=== PATIENT | female | born 1995 | race African-American/Black ===

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

== ENCOUNTER 2017-04-22 10:10 | Emergency (ER) | payer OTHER ==
[~2017-04-22] VITALS: Ht 172.7 cm; Wt 69.9 kg
[~2017-04-22 10:10] MED LIST: ALBUTEROL SULF8.5 GM INH; AMOXICILLIN500 MG ORAL; NKM; PREDNISONE20 MG ORAL
[2017-04-22] MEDS ORDERED: Metoclopramide 10mg/2ml Inj IVP ONE (11:00)
[2017-04-22] MEDS ORDERED: DiphenhydrAMINE 50mg/ml Inj IVP ONE (11:00)
[2017-04-22 11:34] LABS: APPEARANCE,URINE SLIGHTLY CLOUDY; KETONES,URINE NEGATIVE (NEGATIVE); LEUKOCYTE ESTERASE ,URINE 3+ (NEGATIVE); NITRITE,URINE NEGATIVE (NEGATIVE); PH,URINE 6 (4.5-8.0); PROTEIN,URINE 1+ (NEGATIVE); UROBILINOGEN,URINE 1 MG/DL (0.0-1.0)
[2017-04-22 11:40] LABS: BASOPHILS % (AUTO) 1.3 % (0.0-2.0); EOSINOPHILS % (AUTO) 1.2 % (0.0-3.0); LYMPHOCYTES % (AUTO) 28.9 % (20.0-45.0); MEAN CORPUSCULAR HEMOGLOBIN 25.7 PG (27.0-31.0); MEAN CORPUSCULAR HGB CONC 31.2 G/DL (32.0-36.0); MEAN CORPUSCULAR VOLUME 82 FL (80-99); MEAN PLATELET VOLUME 5.5 FL (6.5-10.1); MONOCYTES % (AUTO) 9.7 % (1.0-10.0); NEUTROPHILS % (AUTO) 58.9 % (45.0-75.0); PLATELET COUNT 264 K/UL (150-450); RED BLOOD COUNT 4.96 M/UL (4.20-5.40); RED CELL DISTRIBUTION WIDTH 11.2 % (11.6-14.8); WHITE BLOOD COUNT 5.1 K/UL (4.8-10.8)
[2017-04-22 11:44] LABS: ANION GAP 6 mmol/L (5-15); CALCIUM 8.9 MG/DL (8.5-10.1); CARBON DIOXIDE 28 MMOL/L (21-32); CHLORIDE 104 MMOL/L (98-107); CREATININE 0.8 MG/DL (0.55-1.30); GLOMERULAR FILTRATION RATE > 60 mL/min (>60); POTASSIUM 3.5 MMOL/L (3.5-5.1); SODIUM 138 MMOL/L (136-145)
[2017-04-22 11:46] LABS: BACTERIA,URINE FEW /HPF; SQUAMOUS EPITHELIAL CELL,UR FEW /LPF (NONE/OCC); WBC,URINE 20-30 /HPF (0 - 2)
[2017-04-22 11:49] LABS: ALANINE AMINOTRANSFERASE 13 U/L (12-78); ASPARTATE AMINO TRANSFERASE 10 U/L (15-37); TOTAL PROTEIN 7.5 G/DL (6.4-8.2)
[2017-04-22 11:51] VITALS: BP 112/66
--- NOTE | 2017-04-22 12:08 | Diagnostic Imaging Report ---
Indication: Headache Technique: Continuous helical CT scanning of the head was performed without intravenous contrast material. Axial and coronal 5 mm sections were generated. Radiation dose was minimized using automated exposure control Dose: Total Dose Length Product - DLP [address] Dose Index - CTDIvol(s) 70.5 mGy. Comparison: None Findings: The ventricular system is normal in size and configuration. There is no shift of midline structures. No abnormal extra-axial fluid collections are noted. There is no evidence of intracerebral bleeding. No abnormal high or low density areas are noted within the brain. There is no calvarial fracture. No focal soft tissue swelling/scalp hematoma is identified. Visualized paranasal sinuses and mastoid air cells are clear. Impression: No evidence of acute intracranial hemorrhage, mass effect or cortical edema. MRI may be obtained for more sensitive evaluation as clinically indicated. The CT scanner at [facility] is accredited by the [employer] and the scans are performed using protocols designed to limit radiation exposure to as low as reasonably achievable to attain images of sufficient resolution adequate for diagnostic evaluation.
[2017-04-22] MEDS ORDERED: KEFLEX500 MG ORAL (12:32)
[2017-04-22] MEDS ORDERED: FIORICET1 EA ORAL (12:32)
[2017-04-22 13:33] VITALS: BP 112/66
--- NOTE | 2017-04-22 13:57 | Emergency Room Report ---
History of Present Illness General Chief Complaint: Headache Source: Patient Present Illness HPI 21-year-old female presents ED complaining of headache. Describes headache across the forehead, throbbing, 7/10, nonradiating. Notes photophobia blurry vision. Denies nausea and vomiting. Denies stiffness. Denies fevers chills. States headache has persisted for the last 6 months, not responding to over-the- counter medications. No other aggravating or relieving factors. Denies any other associated symptoms Allergies: Coded Allergies: No Known Allergies (Unverified , 12/22/16) Patient History Past Medical History: none Past Surgical History: none Pertinent Family History: none Social History: Denies: smoking, alcohol use, drug use Last Menstrual Period: 04/14/17 Now: No : 0 Para: 0 Immunizations: UTD Reviewed Nursing Documentation: PMH: Agreed, PSxH: Agreed Nursing Documentation-PMH Past Medical History: No History, Except For Review of Systems All Other Systems: negative except mentioned in HPI Physical Exam Vital Signs Date Time Temp Pulse Resp B/P (MAP) Pulse Ox O2 Delivery O2 Flow Rate FiO2 04/22/17 10:21 98.4 18 112/66 100 Room Air 04/22/17 11:51 75 Sp02 EP Interpretation: reviewed, normal General Appearance: no apparent distress, alert, GCS 15, non-toxic Head: normocephalic, atraumatic Eyes: bilateral eye normal inspection, bilateral eye PERRL ENT: hearing grossly normal, normal pharynx, no angioedema, normal voice Neck: full range of motion, supple, no meningismus, supple/symm/no masses Respiratory: chest non-tender, lungs clear, normal breath sounds, speaking full sentences Cardiovascular #1: regular rate, rhythm, no edema Cardiovascular #2: 2+ carotid (R), 2+ carotid (L), 2+ radial (R), 2+ radial (L) , 2+ dorsalis pedis (R), 2+ dorsalis pedis (L) Gastrointestinal: normal bowel sounds, non tender, soft, non-distended, no guarding, no rebound Rectal: deferred Genitourinary: normal inspection, no CVA tenderness Musculoskeletal: back normal, gait/station normal, normal range of motion, non- tender Neurologic: alert, oriented x3, responsive, motor strength/tone normal, sensory intact, speech normal Psychiatric: judgement/insight normal, memory normal, mood/affect normal, no suicidal/homicidal ideation Reflexes: 3+ bicep (R), 3+ bicep (L), 3+ tricep (R), 3+ tricep (L), 3+ knee (R) , 3+ knee (L) Skin: normal color, no rash, warm/dry, well hydrated Lymphatic: no adenopathy Medical Decision Making Diagnostic Impression: Primary Impression: UTI (urinary tract infection) Qualified Codes: N39.0 - Urinary tract infection, site not specified Additional Impression: Headache Qualified Codes: R51 - Headache ER Course Hospital Course 21-year-old female presents to ED complaining of headaches with blurry vision x 6 months Differential diagnoses include: tension headache, migraine, dehydration, intracranial bleed Clinical course Patient placed on stretcher. After initial history and physical I ordered labs , IV fluids, Reglan and Benadryl. Labs reviewed- electrolytes okay, no leukocytosis, hemoglobin/hematocrit stable. UA + bacteria CT head unremarkable Upon reassessment patient states pain has improved. Patient feels better wishes to go home. Given the lack of fever, nuchal rigidity or neurological findings my suspicion for intracranial pathology is low patient be safely discharged to home. given referral to neurology i. I feel this is a highly complex case requiring extensive working including EKG/Rhythm strip, Xray/CT/US, Blood/urine lab work, repeat exams while in ED, and administration of strong opiates/narcotics for pain control, admission to hospital or close patient follow up. Diagnosis - headache, UTI stable and discharged to home with Rx Keflex, Fioricet. f/up with PMD. return to ED if symptoms recur/worsen. Labs Test 04/22/17 11:00 White Blood Count 5.1 K/UL (4.8-10.8) Red Blood Count 4.96 M/UL (4.20-5.40) Hemoglobin 12.7 G/DL (12.0-16.0) Hematocrit 40.9 % (37.0-47.0) Mean Corpuscular Volume 82 FL (80-99) Mean Corpuscular Hemoglobin 25.7 PG (27.0-31.0) Mean Corpuscular Hemoglobin Concent 31.2 G/DL (32.0-36.0) Red Cell Distribution Width 11.2 % (11.6-14.8) Platelet Count 264 K/UL (150-450) Mean Platelet Volume 5.5 FL (6.5-10.1) Neutrophils (%) (Auto) 58.9 % (45.0-75.0) Lymphocytes (%) (Auto) 28.9 % (20.0-45.0) Monocytes (%) (Auto) 9.7 % (1.0-10.0) Eosinophils (%) (Auto) 1.2 % (0.0-3.0) Basophils (%) (Auto) 1.3 % (0.0-2.0) Urine Color Yellow Urine Appearance Slightly cloudy Urine pH 6 (4.5-8.0) Urine Specific [place] 1.015 (1.005-1.035) Urine Protein 1+ (NEGATIVE) Urine Glucose (UA) Negative (NEGATIVE) Urine Ketones Negative (NEGATIVE) Urine Occult Blood 1+ (NEGATIVE) Urine Nitrite Negative (NEGATIVE) Urine Bilirubin Negative (NEGATIVE) Urine Urobilinogen 1 MG/DL (0.0-1.0) Urine Leukocyte Esterase 3+ (NEGATIVE) Urine RBC 2-4 /HPF (0 - 2) Urine WBC 20-30 /HPF (0 - 2) Urine Squamous Epithelial Cells Few /LPF (NONE/OCC) Urine Bacteria Few /HPF (NONE) Urine HCG, Qualitative Negative Sodium Level 138 MMOL/L (136-145) Potassium Level 3.5 MMOL/L (3.5-5.1) Chloride Level 104 MMOL/L (98-107) Carbon Dioxide Level 28 MMOL/L (21-32) Anion Gap 6 mmol/L (5-15) Blood Urea Nitrogen 12 mg/dL (7-18) Creatinine 0.8 MG/DL (0.55-1.30) Estimat Glomerular Filtration Rate > 60 mL/min (>60) Glucose Level 84 MG/DL (74-106) Calcium Level 8.9 MG/DL (8.5-10.1) Total Bilirubin 0.5 MG/DL (0.2-1.0) Aspartate Amino Transf (AST/SGOT) 10 U/L (15-37) Alanine Aminotransferase (ALT/SGPT) 13 U/L (12-78) Alkaline Phosphatase 53 U/L (46-116) Total Protein 7.5 G/DL (6.4-8.2) Albumin 3.7 G/DL (3.4-5.0) Globulin 3.8 g/dL Albumin/Globulin Ratio 1.0 (1.0-2.7) CT/MRI/US Diagnostic Results CT/MRI/US Diagnostic Results : Imaging Test Ordered: CT Head Impression no acute process Last Vital Signs Date Time Temp Pulse Resp B/P (MAP) Pulse Ox O2 Delivery O2 Flow Rate FiO2 04/22/17 13:33 98.4 75 18 112/66 100 Room Air Status: improved Disposition: HOME, SELF-CARE Condition: Stable Scripts Cephalexin* (KEFLEX*) 500 Mg Capsule 500 MG ORAL Q6H, #28 CAP 0 Refills Prov: SABRA DELUCA M.D. 04/22/17 Acetamin/Butalbital/Caffeine* (FIORICET*) 1 Ea Tab 1 TAB ORAL Q6H, #15 TAB 0 Refills Prov: SABRA DELUCA M.D. 04/22/17 Referrals: [facility] Patient Instructions: Migraine Headache SABRA DELUCA M.D. Apr 22, 2017 13:56
== END 2017-04-22 13:20 | disposition home or self-care (01) ==
LOC: EMR 10:55
DX: N39.0 Urinary tract infection, site not specified (principal); R51 Headache
CPT/HCPCS: 36415; 70450; 80053; 81003; 81025; 85025; 87086; 96374; 96375; 99284; J1200; J2765

== ENCOUNTER 2017-07-22 09:09 | Emergency (ER) | payer OTHER ==
[~2017-07-22] VITALS: Ht 172.7 cm; Wt 68.0 kg
[~2017-07-22 09:09] MED LIST changes: +FIORICET1 EA ORAL; +KEFLEX500 MG ORAL
--- NOTE | 2017-07-22 09:40 | Emergency Room Report ---
History of Present Illness General Chief Complaint: General Complaint Source: Patient, Medical Record Present Illness HPI Patient presents with complaints of upper chest pain Left arm pain Symptoms ongoing for the past 7 days On further questioning patient reports that she did have a mild cough That has now started to improve Symptoms started around the same time with the pain and a mild cough Denies any recent travel denies any vomiting or diarrhea denies any fevers or chills Patient has a feeling of the arm becoming heavy on the left side This happens more when she wakes up in the morning and starts to improve throughout the day Denies any focal weakness at this time denies any trauma Allergies: Coded Allergies: No Known Allergies (Unverified , 12/22/16) Patient History Past Medical History: see triage record Pertinent Family History: none Last Menstrual Period: 07/20/17 Reviewed Nursing Documentation: PMH: Agreed, PSxH: Agreed Nursing Documentation-PMH Past Medical History: No History, Except For Review of Systems All Other Systems: negative except mentioned in HPI Physical Exam Vital Signs Date Time Temp Pulse Resp B/P (MAP) Pulse Ox O2 Delivery O2 Flow Rate FiO2 07/22/17 09:12 98.8 80 18 138/64 98 Room Air 98.8 Sp02 EP Interpretation: reviewed, normal General Appearance: well appearing, no apparent distress Head: normocephalic, atraumatic Eyes: bilateral eye PERRL, bilateral eye EOMI ENT: hearing grossly normal, normal pharynx, TMs + canals normal, uvula midline Neck: full range of motion, supple, no meningismus, no bony tend Respiratory: lungs clear, normal breath sounds, no rhonchi, no respiratory distress, no retraction, no accessory muscle use Cardiovascular #1: normal peripheral pulses, regular rate, rhythm, no edema, no gallop, no JVD, no murmur Gastrointestinal: normal bowel sounds, non tender, soft, no mass, no organomegaly, non-distended, no guarding, no hernia, no pulsatile mass, no rebound Genitourinary: no CVA tenderness Musculoskeletal: normal inspection Neurologic: oriented x3, responsive, oracle drm consultant III-XII nml as tested, motor strength/ tone normal, sensory intact Psychiatric: mood/affect normal Skin: normal color, no rash, warm/dry, palpation normal Lymphatic: normal inspection, no adenopathy Medical Decision Making Diagnostic Impression: Primary Impression: Upper respiratory infection Additional Impression: Chest pain ER Course Multiple differentials were considered Patient does have a fairly benign medical evaluation Remains hemodynamic stable Investigation including EKG and chest x-ray were obtained no acute pathology is seen Please note that the patient had also mentioned regarding evidence of blood in the stool several days ago this was at triage this was not discussed with me at bedside asking further it sounds to be an isolated incident and further investigation was not made regarding this complaint Patient is stable for close outpatient follow-up EKG Diagnostic Results Rate: normal Rhythm: NSR ST Segments: no acute changes Rhythm Strip Diag. Results EP Interpretation: yes Rate: 77 Rhythm: NSR, no PVC's, no ectopy Chest X-Ray Diagnostic Results Chest X-Ray Diagnostic Results : Chest X-Ray Ordered: Yes # of Views/Limited/Complete: 1 View Indication: Chest Pain EP Interpretation: Yes Interpretation: no consolidation, no effusion, no pneumothorax Impression: No acute disease Electronically Signed by: Eric Cerda DO Last Vital Signs Date Time Temp Pulse Resp B/P (MAP) Pulse Ox O2 Delivery O2 Flow Rate FiO2 07/22/17 09:12 98.8 80 18 138/64 98 Room Air 98.8 Status: unchanged Disposition: HOME, SELF-CARE Condition: Stable Additional Instructions: Patient is provided with the discharge instructions notified to follow up with primary doctor in the next 2-3 days otherwise return to the er with any worsening symptoms. Please note that this report is being documented using [employer] technology. This can lead to erroneous entry secondary to incorrect interpretation by the dictating instrument. ERIC CERDA D.O. Jul 22, 2017 09:39
[2017-07-22 10:16] VITALS: BP 130/60
[2017-07-22 10:18] VITALS: BP 130/60
--- NOTE | 2017-07-22 13:34 | Diagnostic Imaging Report ---
Indication: Chest pain Technique: One view of the chest Comparison: 12/22/2016 Findings: Lungs and pleural spaces are clear. Heart size is normal. No significant interim change Impression: No acute process
--- NOTE | 2017-07-24 16:33 | Cardiology Report ---
APPROVED REPORT EKG Measurement Heart [id number] Normal sinus rhythm with sinus arrhythmia Normal ECG
== END 2017-07-22 10:21 | disposition home or self-care (01) ==
LOC: EMR 10:15
DX: J06.9 Acute upper respiratory infection, unspecified (principal)
CPT/HCPCS: 71045; 80307; 81025; 93005; 99283

== ENCOUNTER 2017-09-27 22:27 | Emergency (ER) | payer OTHER ==
[~2017-09-27] VITALS: Ht 172.7 cm; Wt 71.7 kg
[2017-09-27] MEDS ORDERED: Norco 5mg/325mg tab ORAL ONE (23:00)
[2017-09-27] MEDS ORDERED: IBUPROFEN600 MG ORAL (23:24)
[2017-09-27] MEDS ORDERED: HYDROCODON-ACE1 EA16 ORAL (23:24)
--- NOTE | 2017-09-27 23:24 | Emergency Room Report ---
History of Present Illness General Chief Complaint: Lower Extremity Injury Source: Patient, Family Member Present Illness HPI This is a 21-year-old female with no past medical history presents with chief complaint of right knee pain. No trauma. Onset couple days ago. Worse with walking. No fever or chills. No repetitive motion. Pain is 7 out of 10. Allergies: Coded Allergies: No Known Allergies (Unverified , 12/22/16) Patient History Past Medical History: see triage record, old chart reviewed Past Surgical History: none Pertinent Family History: none Social History: Denies: smoking Now: No Immunizations: other Reviewed Nursing Documentation: PMH: Agreed; PSxH: Agreed Review of Systems Eye: Denies: eye pain, blurred vision ENT: Denies: ear pain, nose congestion, throat swelling Respiratory: Denies: cough, shortness of breath Cardiovascular: Denies: chest pain, palpitations Gastrointestinal: Denies: abdominal pain, diarrhea, nausea, vomiting Musculoskeletal: Reports: joint pain, joint swelling; Denies: back pain Skin: Denies: rash Neurological: Denies: headache, numbness Endocrine: Denies: increased thirst, increased urine Hematologic/Lymphatic: Denies: easy bruising All Other Systems: negative except mentioned in HPI Physical Exam Vital Signs Date Time Temp Pulse Resp B/P (MAP) Pulse Ox O2 Delivery O2 Flow Rate FiO2 09/27/17 22:29 99.1 98 16 100/61 98 Room Air 99.1 vitals normal Sp02 EP Interpretation: reviewed, normal General Appearance: well appearing, no apparent distress, alert Head: normocephalic, atraumatic Eyes: bilateral eye PERRL, bilateral eye EOMI ENT: hearing grossly normal, normal pharynx Neck: full range of motion, supple, no meningismus Respiratory: chest non-tender, lungs clear, normal breath sounds Cardiovascular #1: regular rate, rhythm, no murmur Gastrointestinal: normal bowel sounds, non tender, no mass, no organomegaly, no bruit, non-distended Musculoskeletal: back normal, swelling - Right knee: There is effusion and tenderness to the medial collateral ligament area. Full range of motion but limited secondary to edema. No warmth or redness. Neurologic: alert, oriented x3 Psychiatric: mood/affect normal Skin: warm/dry Procedures Splinting Splinting : Consent: Verbal Location: right knee Pre-Made Type: knee immobilizer Pre-Proc Neuro Vasc Exam: normal Post-Proc Neuro Vasc Exam: normal Patient Tolerated: Well Complications: None Medical Decision Making Diagnostic Impression: Primary Impression: Knee effusion, right ER Course Patient present with a right knee effusion. No evidence of septic joint. We' ll discharge home with anti-inflammatory medication. If not better, told patient to come back for arthrocentesis. If she started having a fever or redness, also knee arthrocentesis. Other X-Ray Diagnostic Results Other X-Ray Diagnostic Results : X-Ray ordered: right knee x-rays # of Views/Limited Vs Complete: 4 View Indication: Pain EP Interpretation: Yes Interpretation: no dislocation, no soft tissue swelling, no fractures, other - effusion Impression: Other - Joint effusion Electronically Signed by: Seth Matthew MD Last Vital Signs Date Time Temp Pulse Resp B/P (MAP) Pulse Ox O2 Delivery O2 Flow Rate FiO2 09/27/17 22:58 99.1 09/27/17 22:29 98 16 100/61 98 Room Air Status: improved Disposition: HOME, SELF-CARE Condition: Stable Scripts Ibuprofen* (MOTRIN*) 600 Mg Tablet 600 MG ORAL THREE TIMES A DAY, #30 TAB 0 Refills Prov: SETH MATTHEW M.D. 09/27/17 Hydrocodone/Acetaminophen 7.5-325* (HYDROCODON-ACETAMINOPH 7.5-325*) 1 Each Tablet 1 TAB ORAL Q6H PRN for For Pain, #20 TAB 0 Refills Prov: SETH MATTHEW M.D. 09/27/17 Referrals: [facility] (PCP) Patient Instructions: Knee Sprain Additional Instructions: Follow-up your doctor in 7 days. Elevate leg. Ice pack area. Return if worse or having fever or redness. SETH MATTHEW M.D. September 27, 2017 23:24
[2017-09-27 23:33] VITALS: BP 100/61
--- NOTE | 2017-09-28 09:49 | Diagnostic Imaging Report ---
Indication: Right knee pain for 2 days Technique: 3 views of the right knee Comparison: None Findings:There is a small suprapatellar effusion. No acute fractures. No dislocations. The joint spaces are preserved Impression: Small joint effusion. No acute bony trauma This agrees with the preliminary interpretation provided by the emergency room physician
== END 2017-09-27 23:33 | disposition home or self-care (01) ==
LOC: EMR 22:45
DX: M25.461 Effusion, right knee (principal)
CPT/HCPCS: 29505; 99284

== ENCOUNTER 2018-07-17 16:21 | Emergency (ER) | payer SELFPAY ==
[~2018-07-17] VITALS: Ht 172.7 cm; Wt 65.8 kg
[~2018-07-17 16:21] MED LIST changes: +HYDROCODON-ACE1 EA16 ORAL; +IBUPROFEN600 MG ORAL
[2018-07-17 16:26] VITALS: BP 103/64
--- NOTE | 2018-07-17 17:40 | NUR ---
ED Nurse Note: PT. AAOX4. AMBULATED IN TO ER DUE TO PAIN 7/10 BILATERAL KNEES, FEET AND FINGER X 1 MONTH. NO RECENT INJURY
--- NOTE | 2018-07-17 17:56 | Emergency Room Report ---
History of Present Illness General Chief Complaint: Pain Source: Patient (Savanna Koehler) Present Illness HPI 22-year-old female presents to the emergency department complaining of 8 out of 10 in severity pain and joint stiffness with intermittent associated swelling to the bilateral ankles, knees and now the wrists times one month. Patient reports that she is actually been having these symptoms for many years however later becoming more frequent and more joints are involved. Patient denies past medical history denies erythema, warmth or trauma to any of the joints. Patient denies history of STI eyes. Patient reports that mother does have complicated autoimmune conditions for which she cannot recall the names of. Patient denies significant changes in weight, fevers or chills. She reports no aggravating or alleviating factors her symptoms occur spontaneously usually in the morning she feels stiffness. Denies URI symptoms or recent illnesses. Denies strenuous activities. Denies paresthesias or muscle weakness. (Savanna Koehler) Allergies: Coded Allergies: No Known Allergies (Unverified , 07/17/18) Patient History Past Medical History: see triage record Past Surgical History: none Pertinent Family History: none Last Menstrual Period: JUN 2018 Now: No Reviewed Nursing Documentation: PMH: Agreed; PSxH: Agreed (Savanna Koehler) Nursing Documentation-PMH Past Medical History: No History, Except For (Savanna Koehler) Review of Systems All Other Systems: negative except mentioned in HPI (Savanna Koehler) Physical Exam Vital Signs Date Time Temp Pulse Resp B/P (MAP) Pulse Ox O2 Delivery O2 Flow Rate FiO2 07/17/18 16:26 98.4 88 16 103/64 96 Room Air Sp02 EP Interpretation: reviewed, normal General Appearance: no apparent distress, alert, GCS 15, non-toxic Head: normocephalic, atraumatic Eyes: bilateral eye normal inspection, bilateral eye PERRL ENT: hearing grossly normal, normal voice Neck: full range of motion Respiratory: lungs clear, normal breath sounds, speaking full sentences Cardiovascular #1: regular rate, rhythm, no edema, normal capillary refill Cardiovascular #2: 2+ dorsalis pedis (R) - post tib. , 2+ dorsalis pedis (L) - post tib. Musculoskeletal: back normal, gait/station normal, normal range of motion, non- tender, other - no obvious swelling of the joints, mild tenderness diffusely, no localized ttp, no obivous deformities. Neurologic: alert, oriented x3, responsive, motor strength/tone normal, sensory intact, normal gait, speech normal, grossly normal Psychiatric: judgement/insight normal Skin: normal color, no rash, warm/dry, well hydrated, other - no erythema, warmth or bruises. (Savanna Koehler) Medical Decision Making PA Attestation Dr. Kimble is my supervising Physician whom patient management has been discussed with. (Savanna Koehler) Diagnostic Impression: Primary Impression: Polyarthralgia ER Course 22-year-old female presents to the emergency department complaining of 8 out of 10 in severity pain and joint stiffness with intermittent associated swelling to the bilateral ankles, knees and now the wrists times one month. Patient reports that she is actually been having these symptoms for many years however later becoming more frequent and more joints are involved. Patient denies past medical history denies erythema, warmth or trauma to any of the joints. Patient denies history of STI eyes. Patient reports that mother does have complicated autoimmune conditions for which she cannot recall the names of. Patient denies significant changes in weight, fevers or chills. She reports no aggravating or alleviating factors her symptoms occur spontaneously usually in the morning she feels stiffness. Denies URI symptoms or recent illnesses. Denies strenuous activities. Denies paresthesias or muscle weakness. Ddx considered but are not limited to Fracture, dislocation, contusion, Sprain/ Strain/Spasm Septic joint, Rheumatological condition just to name a few. Vital signs: are WNL, pt. is afebrile H&PE are most consistent with chronic polyarthralgia that has been relatively stable for years. most likely rehumatological condition, no evidence of acute infection. pt. NAD and non-toxic in appearance. ORDERS: - no Imaging as pt. has no bony ttp. ED INTERVENTIONS: - None pt. reports symptoms currently tolerable -I do not identify an emergent condition at this time. With current presentation , pt. is stable for close outpatient follow up and conservative treatment. D/ w pt. to return promptly to ED with worsening or new symptoms.- Pt. verbalizes' understanding and agreement with proposed treatment plan.proposed treatment plan. DISCHARGE: At this time pt. is stable for d/c to home. Will provide printed patient care instructions, and any necessary prescriptions. Care plan and follow up instructions have been discussed with the patient prior to discharge. (Savanna Koehler) Last Vital Signs Date Time Temp Pulse Resp B/P (MAP) Pulse Ox O2 Delivery O2 Flow Rate FiO2 07/17/18 16:26 98.4 88 16 103/64 96 Room Air (Savanna Koehler) Last Vital Signs Date Time Temp Pulse Resp B/P (MAP) Pulse Ox O2 Delivery O2 Flow Rate FiO2 07/17/18 18:07 98.0 79 18 110/64 96 Room Air (Khai Kimble MD) Disposition: HOME, SELF-CARE Condition: Stable Scripts Naproxen* (NAPROXEN*) 500 Mg Tablet 500 MG ORAL TWICE A DAY for 10 Days, #20 TAB Prov: Savanna Koehler 07/17/18 Departure Forms: Return to Work Return to Work Date: Jul 21, 2018 Work Restrictions: None Other Restrictions: May return Sooner if Symptoms have resolved. Return to Full Activity: Jul 21, 2018 Patient Instructions: Joint Pain, Polymyalgia Rheumatica Additional Instructions: Take medications as directed. Follow up with a Primary Care Provider in 3-5 days, even if your symptoms have resolved. NEEDS RHEUMATOLOGY EVALUATION --Please review list of primary care clinics, if you do not already have a primary care provider Return sooner to ED if new symptoms occur, or current symptoms become worse. - Please note that this Emergency Department Report was dictated using [employer] technology software, occasionally this can lead to erroneous entry secondary to interpretation by the dictation equipment. Savanna Koehler Jul 17, 2018 17:56 Khai Kimble MD Jul 18, 2018 04:43
[2018-07-17] MEDS ORDERED: NAPROXEN500 M2 ORAL (17:57)
[2018-07-17 18:07] VITALS: BP 110/64
--- NOTE | 2018-07-17 18:09 | NUR ---
ED Nurse Note: Pt cleared by health care Provider for discharge. DC instructions/prescription was given and explained to pt and verbalized understanding of teachings. All medical deviecs such as ID band removed. Pt is AAO x4, ambulatory and left with all personal belongings.
== END 2018-07-17 18:07 | disposition home or self-care (01) ==
LOC: EMR 17:00
DX: M25.562 Pain in left knee (principal); M25.561 Pain in right knee; M25.572 Pain in left ankle and joints of left foot; M25.571 Pain in right ankle and joints of right foot; M25.532 Pain in left wrist; M25.531 Pain in right wrist
CPT/HCPCS: 99282